=== PATIENT | female | born 1970 | race African-American/Black ===

== ENCOUNTER 2019-12-03 08:35 | Emergency (ER) | payer OTHER ==
[~2019-12-03] VITALS: Ht 139.7 cm; Wt 65.3 kg
[2019-12-03] MEDS ORDERED: NOHOMEMEDICATIONS (09:04)
[2019-12-03 09:58] LABS: BASOPHILS 1.2 % (0.0-2.0); EOSINOPHILS 1.2 % (0.0-3.0); HEMATOCRIT 41.9 % (37.0-47.0); LYMPHOCYTES 47.9 % (24.0-44.0); MCH 31.1 pg (26.0-34.0); MCHC 33.4 g/dL (28.0-37.0); MCV 93.1 fL (80.0-100.0); MONOCYTES 8.4 % (1.0-8.0); PLATELET COUNT 307 thou/uL (150-400); POLYS 41.3 % (36.0-66.0); RDW 14.4 % (10.5-14.5); WBC 4.9 thou/uL (4.0-11.0)
[2019-12-03 10:05] LABS: POTASSIUM 3.7 mmol/L (3.5-5.1)
[2019-12-03 10:10] LABS: PROTIME 10.3 Seconds (9.3-11.4)
[2019-12-03 11:53] VITALS: BP 112/70
== END 2019-12-03 11:55 | disposition home or self-care (01) ==
LOC: ER 08:35
PROVIDERS: Student in an Organized Health Care Education/Training Program
DX: F45.8 Other somatoform disorders (principal); K12.1 Other forms of stomatitis; E04.1 Nontoxic single thyroid nodule; J02.9 Acute pharyngitis, unspecified; R06.02 Shortness of breath; J39.2 Other diseases of pharynx; F17.210 Nicotine dependence, cigarettes, uncomplicated

== ENCOUNTER 2021-02-24 01:30 | Emergency (ER) | payer OTHER ==
[~2021-02-24] VITALS: Ht 170.2 cm; Wt 61.2 kg
[~2021-02-24 01:30] MED LIST: NOHOMEMEDICATIONS
[2021-02-24 02:18] LABS: HEMATOCRIT 35.7 % (37.0-47.0); HEMOGLOBIN 12.2 gm/dL (12.0-15.0); MCH 31.8 pg (26.0-34.0); MCHC 34.1 g/dL (28.0-37.0); MCV 93.2 fL (80.0-100.0); PLATELET COUNT 246 thou/uL (150-400); RBC 3.83 mil/uL (4.20-5.00); RDW 14.6 % (10.5-14.5); WBC 6.3 thou/uL (4.0-11.0)
[2021-02-24 02:25] LABS: CALCIUM 8.5 mg/dL (8.5-10.1); CREATININE 1.1 mg/dL (0.6-1.0); POTASSIUM 3.4 mmol/L (3.5-5.1)
[2021-02-24 02:31] LABS: ALBUMIN 3.6 g/dL (3.4-5.0); TOTAL BILIRUBIN 0.2 mg/dL (0.2-1.0); TOTAL PROTEIN 6.9 g/dL (6.4-8.2)
[2021-02-24 02:41] LABS: ABSOLUTE NEUTROPHILS 1.7 thou/uL (1.4-8.2)
[2021-02-24] MEDS ORDERED: DIAZEPAM 5 MG5 M1 PO ×2 (03:30→03:31)
[2021-02-24] MEDS ORDERED: MEDROLDOSEPACK PO ×2 (03:30→03:31)
[2021-02-24 06:30] VITALS: BP 125/80
== END 2021-02-24 06:30 | disposition home or self-care (01) ==
LOC: ER 01:30
PROVIDERS: Emergency Medicine
DX: M54.41 Lumbago with sciatica, right side (principal)